=== PATIENT | male | born 1970 | race Two or more races ===

== ENCOUNTER 2020-02-20 02:52 | Emergency (ER) | payer SELFPAY ==
[~2020-02-20] VITALS: Ht 175.3 cm; Wt 77.1 kg
--- NOTE | 2020-02-20 02:57 | NUR ---
ED Nurse Note: Pt brought it by [address], [employer] present. Pt was found running in the st naked and yelling, admitted to taking meth earlier, Pt was given 5mg Versed in the field. Pt is awake and answers questions but does not know his name, Pt placed in isolation room. vSS
--- NOTE | 2020-02-20 02:57 | Emergency Room Report ---
History of Present Illness General Chief Complaint: To Be Triaged Source: Patient, EMS, [employer] Present Illness HPI Is a approximately 50-year-old white male came as a Russell Martinez with chief complaint of overdose. He was running naked in the street and bystander called 911. He was agitated and admits to using crystal methamphetamine tonight. EMS had to give him 5 mg Versed IM. Patient was able to give me his date of but refused to give his name. He denies suicidal thought homicidal thoughts. He is very vague on his history. No nausea no vomiting. No fever or chills. History is limited because patient is not cooperative. Allergies: Coded Allergies: NO KNOWN ALLERGIES (Verified Allergy, Unknown, 02/20/20) Patient History Past Medical History: see triage record, old chart reviewed Past Surgical History: unable to obtain Pertinent Family History: unable to obtain Social History: Reports: drug use Immunizations: other Reviewed Nursing Documentation: PMH: Agreed; PSxH: Agreed Review of Systems Eye: Denies: eye pain, blurred vision ENT: Denies: ear pain, nose congestion, throat swelling Respiratory: Denies: cough, shortness of breath Cardiovascular: Denies: chest pain, palpitations Gastrointestinal: Denies: abdominal pain, diarrhea, nausea, vomiting Musculoskeletal: Denies: back pain, joint pain Skin: Denies: rash Neurological: Denies: headache, numbness Endocrine: Denies: increased thirst, increased urine Hematologic/Lymphatic: Denies: easy bruising All Other Systems: limited - Patient is not cooperative Physical Exam Sp02 EP Interpretation: reviewed, normal General Appearance: well appearing, no apparent distress, alert Head: normocephalic, atraumatic Eyes: bilateral eye PERRL, bilateral eye EOMI ENT: hearing grossly normal, normal pharynx Neck: full range of motion, supple, no meningismus Respiratory: chest non-tender, lungs clear, normal breath sounds Cardiovascular #1: regular rate, rhythm, no murmur Gastrointestinal: normal bowel sounds, non tender, no mass, no organomegaly, no bruit, non-distended Musculoskeletal: back normal, normal range of motion, gait/station normal Psychiatric: other - Patient is agitated and jittery Medical Decision Making Diagnostic Impression: Primary Impression: Methamphetamine abuse Additional Impression: Drug-induced psychotic disorder Qualified Codes: F19.959 - Other psychoactive substance use, unspecified with psychoactive substance-induced psychotic disorder, unspecified ER Course Patient presents with a drug-induced psychosis. He admits to methamphetamine. He is now back to baseline. He is walking the bathroom without any difficulty. No hallucination or delusion. He still refused to give his name. Will discharge home. Patient said he is not homeless. Status: improved Disposition: HOME, SELF-CARE Condition: Stable Additional Instructions: Abstain from drugs and alcohol. Follow-up with your Dr. In 7 days. Return if worse. Chriss Kumar MD Feb 20, 2020 02:56
--- NOTE | 2020-02-20 03:23 | NUR ---
ED Nurse Note: Pt is awake and walking to bathroom with steady gait.
[2020-02-20 03:24] VITALS: BP 150/86
[2020-02-20 03:53] VITALS: BP 150/86
--- NOTE | 2020-02-20 03:53 | NUR ---
ER DISCHARGE NOTE: Patient is cleared to be discharged per ERMD, pt is aox4, on room air, with stable vital signs. pt was given dc instructions, pt was able to verbalize understanding, pt id band . pt is able to ambulate with steady gait. pt took all belongings. Pt awake and alert, unwilling to give his personal information including his name
== END 2020-02-20 03:54 | disposition home or self-care (01) ==
LOC: EDBD 02:52 → EMR 03:26
DX: F15.159 Other stimulant abuse with stimulant-induced psychotic disorder, unspecified (principal)
CPT/HCPCS: 99281